=== PATIENT | male | born 1930 | race African-American/Black ===

== ENCOUNTER 2018-02-07 11:57 | Observation (INO) | payer MEDICARE ==
[2018-02-07 13:08] LABS: #Lymphocytes 0.9 thou/uL (1.20-3.40); #Monocytes 0.5 thou/uL (0.11-0.59); #Neutrophils 4.2 thou/uL (1.40-6.50); %Eosinophils 0.7 % (0.0-10.0); %Lymphocytes 16.6 % (21.0-51.0); %Monocytes 8.6 % (0.0-10.0); Hemoglobin 13.7 g/dL (14.0-18.0); Mean Corpuscular HGB CONC 31.7 g/dL (32.0-36.0); Mean Corpuscular Volume 75.8 fL (78.0-98.0); Mean Platelet Volume 8.4 fL (7.4-10.4); Platelet Count 260 thou/uL (130-400); RBC Distribution Width 18.3 % (11.5-14.5); Red Blood Cell (RBC) Count 5.71 mill/uL (4.70-6.10); White Blood Cell (WBC) Count 5.7 thou/uL (4.8-10.8)
[2018-02-07 13:24] LABS: ALT (SGPT) 15 U/L (8-55); AST (SGOT) 15 U/L (5-34); Albumin 3.9 g/dL (3.4-4.8); Alkaline Phosphatase 66 U/L (40-150); Anion Gap 15 mmol/L (10-20); BUN (Urea Nitrogen) 12 mg/dL (8.4-25.7); Bilirubin, Total 0.4 mg/dL (0.2-1.2); Calc. Creatinine Clearance 0 mL/min (70-130); Calcium 9.2 mg/dL (7.8-10.44); Carbon Dioxide 21 mmol/L (23-31); Chloride 107 mmol/L (98-107); Estimated GFR-MDRD 72; Glucose 160 mg/dL (83-110); Potassium 4.2 mmol/L (3.5-5.1); Protein, Total 6.9 g/dL (5.8-8.1); Sodium 139 mmol/L (136-145)
[2018-02-07 15:47] LABS: INR-International Normal Ratio 1.8; Prothrombin Time 21.3 SEC (12.0-14.7)
[2018-02-07 15:48] LABS: PTT 37.2 SEC (22.9-36.1)
--- NOTE | 2018-02-07 16:04 | CT ---
CT OF THE BRAIN WITHOUT CONTRAST: Date: 02/07/18 COMPARISON: None. HISTORY: Dizziness and vertigo. Lightheadedness. TECHNIQUE: Multiple contiguous axial images were obtained in a CT of the brain without contrast. FINDINGS: There are a few scattered hypodensities in the subcortical periventricular white matter, likely secon mason to small vessel ischemic disease. Intracranial vascular calcifications are seen. There is no tri dence of hydrocephalus, intracranial hemorrhage, or extra-axial fluid collection. The calvarium and overlying soft tissues are unremarkable. The visualized paranasal sinuses are well aerated. Fluid is seen in the bilateral mastoid air cells. IMPRESSION: No evidence of acute intracranial abnormality. POS: [facility]
[2018-02-07] MEDS ORDERED: Meclizine HCl 25 MG TAB ONE (16:41)
[2018-02-07 18:38] LABS: Bilirubin Negative (Negative); Blood, Urine Negative (Negative); Clarity CLEAR (Clear); Glucose, Urine (Dipstick) Negative (Negative); Leukocyte Negative (Negative); Nitrite Negative (Negative); Protein, Urine (Dipstick) Negative (Neg-Trace); Specific Gravity, Urine 1.013 (1.002-1.036); Urobilinogen 0.2 mg/dL (0.2-1.0)
[2018-02-07] MEDS ORDERED: Acetaminophen 325 MG TAB PO PRN (21:23)
[2018-02-07] MEDS ORDERED: Ondansetron ODT 4 MG TAB SL PRN (21:23)
[2018-02-07] MEDS ORDERED: Ondansetron HCl/PF 4 MG/2 ML Vial IVP PRN (21:23)
[2018-02-07] MEDS ORDERED: Meclizine HCl 25 MG TAB PO PRN (21:24)
[2018-02-07 21:44] VITALS: BMI 33.6
[2018-02-08] MEDS ORDERED: Dextrose 5% in Water 1,000 ML IV PRN (11:26)
[2018-02-08] MEDS ORDERED: Dextrose 50% Abboject 50 ML SYRINGE IVP PRN (11:26)
[2018-02-08] MEDS ORDERED: Insulin Regular 300 UNITS/3 ML VIAL SC PRN (11:26)
[2018-02-08] MEDS ORDERED: hydrALAZINE 25 MG TAB PO SCH (11:30)
[2018-02-08] MEDS ORDERED: Losartan 25 MG TAB PO SCH (11:30)
[2018-02-08] MEDS ORDERED: Amlodipine 10 MG TAB PO SCH (11:30)
[2018-02-08] MEDS ORDERED: Lidocaine 2% Jelly 5 ML TUBE TOP SCH (11:45)
--- NOTE | 2018-02-08 15:35 | ULT ---
CAROTID DUPLEX SONOGRAM: HISTORY: Altered mental status. Vascular disease. FINDINGS: RIGHT: Mild plaque. Color and spectral Doppler evaluation, peak systolic velocity of 67 cm/s, and IC to CC ratio 0.7 suggests no hemodynamically significant stenosis within the extracranial right ICA. Antegr lorraine flow within the vertebral artery. LEFT: Minimal plaque. Color and spectral Doppler evaluation, peak systolic velocity of 65 cm/s, and IC to CC ratio 0.6 suggests no hemodynamically significant stenosis within the extracranial left ICA. Ante grade flow within the vertebral artery. IMPRESSION: Atherosclerosis. No sonographic evidence of significant extracranial internal carotid artery stenosi s. POS: [facility]
[2018-02-08] MEDS: hydrALAZINE 25 MG TAB PO SCH ×2 (16:26→20:13)
[2018-02-08] MEDS: metFORMIN 500 MG TAB PO SCH (16:26)
[2018-02-08] MEDS ORDERED: Warfarin Sodium 3 MG TAB PO SCH (17:00)
[2018-02-08] MEDS: Meclizine HCl 25 MG TAB PO SCH (20:14)
[2018-02-08] MEDS ORDERED: Atorvastatin Calcium 40 MG TAB PO SCH (21:00)
--- NOTE | 2018-02-09 03:24 | HP ---
DATE OF ADMISSION: 02/07/2018 CHIEF COMPLAINT: Dizziness and weakness. HISTORY OF PRESENT ILLNESS: Mr. Manning is an 87-year-old with past medical history of hypertension, diabetes mellitus, history of pulmonary embolism, came because of feeling dizzy, room spinning around him and with unsteady gait, feels like falling, but no nausea, vomiting, no headache, no chest pain. No history of any fall because of worsening dizziness. Patient is asked to come to the hospital and dizziness, started just a few days ago. In the ER, patient was evaluated, given meclizine without much improvement, so he was admitted for further evaluation and management of history of possible vertigo. PAST MEDICAL HISTORY: 1. Hypertension ,diabetes mellitus. 2. Hyperlipidemia. 3. Family history of pulmonary embolism. PAST SURGICAL HISTORY: Status post prostatectomy. CURRENT MEDICATIONS: Patient is on amlodipine 10 mg daily, hydralazine 100 mg b.i.d., losartan 100 mg b.i.d., metformin 500 mg b.i.d., Coumadin 2 mg daily, glipizide 10 mg b.i.d., Lipitor 40 mg daily, vitamin D 5000 units daily. ALLERGIES: NKDA. FAMILY HISTORY: Nothing of interest. SOCIAL HISTORY: Patient lives with family. No history of smoking. No history of alcohol. REVIEW OF SYSTEMS: Cardiovascular: No chest pain. No shortness of breath. Respiratory: No fever or cough. Gastrointestinal: No nausea or vomiting. No abdominal pain. Genitourinary: No dysuria or hematuria. Central nervous system: Has dizziness, no headache. PHYSICAL EXAMINATION: GENERAL: The patient is alert, awake, oriented x3. VITAL SIGNS: Temperature 98, pulse 80, respirations 20, blood pressure 170/60. HEENT: Head is normocephalic and atraumatic. Pupils are equal and reactive to light. Nasopharynx is pale and dry. Hard and soft palate, no lesions. SKIN: Skin turgor decreased. NECK: Supple. No JVD. LUNGS: Bilateral air entry present, no rales, no rhonchi. HEART: S1, S2 regular. ABDOMEN: Soft, no distention, no tenderness. No organomegaly. Normal bowel sounds present. RECTAL: ____. CENTRAL NERVOUS SYSTEM: Patient is alert, awake, oriented x3. Motor system, power 4/5 in all extremities. Deep tendon reflex 2+bilaterally. Plantar downgoing. Sensory intact. LABORATORY AND X-RAY FINDINGS: CBC shows WBC 5.7, hemoglobin 13, hematocrit 43 , platelets 260. Metabolic panel shows sodium 139, potassium 4.2, chloride 107 , CO2 is 21, BUN 12, creatinine 1.1, glucose 160. Prothrombin time 21, INR 1.8. Urinalysis negative. CT Scan of the brain showed no evidence of acute intracranial abnormality. EKG shows normal sinus rhythm, no acute ST-T wave changes seen. ASSESSMENT: 1. Vertigo, rule out transient ischemic attack. 2. Unsteady gait. 3. Diabetes mellitus. 4. Hypertension. 5. Hyperlipidemia. 6. History of pulmonary embolism. PLAN: 1. Vital signs q.4 hours. 2. Activity: As tolerated. 3. Allergies: NKDA. 4. Hep-Lock. 5. Continue home medications. 6. Accu-Chek a.c. and at bedtime. 7. Sliding scale mild with regular. 8. Carotid Doppler study. 9. Echocardiogram. 10. Meclizine 25 b.i.d. MTDD
[2018-02-09] MEDS ORDERED: Amlodipine 10 MG TAB PO SCH (09:00)
[2018-02-09] MEDS ORDERED: Losartan 25 MG TAB PO SCH (09:00)
[2018-02-09] MEDS: hydrALAZINE 25 MG TAB PO SCH (09:09)
[2018-02-09] MEDS: Meclizine HCl 25 MG TAB PO SCH (09:09)
[2018-02-09] MEDS: metFORMIN 500 MG TAB PO SCH (09:10)
[2018-02-09 11:34] VITALS: BP 156/74; TEMP 97.7
== END 2018-02-09 13:51 | disposition home or self-care (01) ==
LOC: ERS 11:57 → 2SE 20:00
PROVIDERS: ADMIT Internal Medicine; ATTEND Internal Medicine
DX: R42 Dizziness and giddiness (principal); R26.81 Unsteadiness on feet; I10 Essential (primary) hypertension; E78.5 Hyperlipidemia, unspecified; E11.9 Type 2 diabetes mellitus without complications; Z79.01 Long term (current) use of anticoagulants; Z79.52 Long term (current) use of systemic steroids; Z79.84 Long term (current) use of oral hypoglycemic drugs; Z79.899 Other long term (current) drug therapy
CPT/HCPCS: 70450; 80053; 81003; 82962 ×2; 85025; 85610; 85730; 93005; 93306; 93880; 99285; G0378; 36415; 36416